=== PATIENT | male | born 1940 | race African-American/Black ===

== ENCOUNTER 2016-12-19 14:32 | Emergency (ER) | payer MEDICARE, BC ==
[~2016-12-19] VITALS: Wt 102.1 kg
[~2016-12-19 14:32] MED LIST: ASPIR-LOW81 MG PO; ASPIRIN325 MG PO; ASPIRIN81 M1 PO; FLEXERIL10 MG PO; GARLIC OIL PO; ISOSORBIDE MONO30 M1 PO; LIPITOR40 MG PO; LIPITOR80 MG PO; LOPRESSOR50 M1 PO; LOPRESSOR50 MG PO; MOTRIN IB200 M1 PO; MOTRIN800 MG PO; NITROSTAT0.4 MG SL; NKHM; PLAVIX75 MG PO; Peridex 473 ML473 ML PO; SIMVASTATIN40 MG PO; TYLENOL325 M1; VITAMIN D1000 IU PO
[2016-12-19 14:34] VITALS: BP 162/78
== END 2016-12-19 17:08 | disposition home or self-care (01) ==
LOC: ED 14:32
DX: R13.12 Dysphagia, oropharyngeal phase (principal); I25.10 Atherosclerotic heart disease of native coronary artery without angina pectoris; I25.2 Old myocardial infarction; E78.5 Hyperlipidemia, unspecified; I10 Essential (primary) hypertension; Z88.0 Allergy status to penicillin; Z79.82 Long term (current) use of aspirin; Z79.899 Other long term (current) drug therapy; Z87.891 Personal history of nicotine dependence

== ENCOUNTER 2017-05-06 09:11 | Inpatient (IN) | payer MEDICARE, BC ==
[~2017-05-06] VITALS: Ht 193 cm; Wt 106.6 kg
--- NOTE | ~2017-05-06 | EKG ---
[place], [place] ELECTROCARDIOGRAM REPORT NAME: JOSE A GRIFFITHS UNIT #: [id number] ROOM: 518 DOCTOR: ALBERTO DAVIS,BETY BIRTHDATE: [birth year] DOS: 05/06/2017 TIME: 0925 hours. IMPRESSION: 1. Sinus rhythm. 2. Left ventricular hypertrophy. 3. Nonspecific ST-T changes. 4. First degree atrioventricular block. BETY DOMINGUEZ MD CM:EKGRPT:ELECTROCARDIOGRAM REPORT 1100 [id number] BETY DOMINGUEZ MD
--- NOTE | ~2017-05-06 | EKG ---
[place], [place] ELECTROCARDIOGRAM REPORT NAME: JOSE A GRIFFITHS UNIT #: [id number] ROOM: 518 DOCTOR: ALBERTO DAVIS,BETY BIRTHDATE: [birth year] DOS: 05/06/2017 TIME: 0925 hours. IMPRESSION: 1. Sinus rhythm. 2. First degree atrioventricular block. 3. Probable left ventricular hypertrophy. 4. Normal QT interval. BETY DOMINGUEZ MD CM:EKGRPT:ELECTROCARDIOGRAM REPORT [id number] BETY DOMINGUEZ MD
--- NOTE | ~2017-05-06 | EKG ---
[place], [place] ELECTROCARDIOGRAM REPORT NAME: JOSE A GRIFFITHS UNIT #: [id number] ROOM: 518 DOCTOR: ALBERTO DAVIS,BETY BIRTHDATE: [birth year] DOS: 05/06/2017 TIME: 1554 hours. IMPRESSION: 1. Sinus rhythm. 2. Left axis deviation. 3. Ventricular ectopy. 4. Low voltage complexes in the precordial leads. BETY DOMINGUEZ MD CM:EKGRPT:ELECTROCARDIOGRAM REPORT [id number] BETY DOMINGUEZ MD
--- NOTE | ~2017-05-06 | EKG ---
[place], [place] ELECTROCARDIOGRAM REPORT NAME: JOSE A GRIFFITHS UNIT #: [id number] ROOM: 518 DOCTOR: BETY DOMINGUEZ MD BIRTHDATE: [birth year] DOS: 05/06/2017 TIME: 1219 hours. IMPRESSION: 1. Sinus rhythm. 2. Frequent ventricular ectopy. 3. Left ventricular hypertrophy. BETY DOMINGUEZ MD CM:EKGRPT:ELECTROCARDIOGRAM REPORT 1101 1125 BETY DOMINGUEZ MD
[2017-05-06 09:29] LABS: BASO % 0.4 % (0.0-1.0); EOS # 0.3 10*3/uL (0.0-0.4); EOS % 6.4 % (1.0-4.0); HEMATOCRIT 44.6 % (42.0-52.0); HEMOGLOBIN 14.9 g/dl (14.0-18.0); LYMPH # 1.8 10*3/uL (1.3-4.4); LYMPH % 39.6 % (27.0-41.0); MEAN CORPUSCULAR HGB 30.4 pg (27.0-31.0); MEAN CORPUSCULAR HGB CONC 33.4 g/dl (33.0-37.0); MEAN PLATELET VOLUME 11.1 fl (9.6-12.3); MONO # 0.7 10*3/uL (0.1-1.0); MONO % 14.8 % (3.0-9.0); NEUT # 1.8 10*3/uL (2.3-7.9); NEUT % 38.8 % (47.0-73.0); PLATELET COUNT AUTOMATED 203 10*3/uL (130-400); RED CELL DISTRI WIDTH 14.7 % (0-14.5); WHITE BLOOD COUNT 4.5 10*3/uL (4.8-10.8)
[2017-05-06 09:31] VITALS: BP 167/94
[2017-05-06 09:43] LABS: ACT PARTIAL THROMBO TIME 28.4 SECONDS (20.8-31.5); INTERNATIONAL NORM RATIO 1.2 (2.0-3.5)
[2017-05-06 09:50] LABS: ALBUMIN 3.4 gm/dl (3.1-4.5); ALKALINE PHOSPHATASE 97 U/L (45-117); BUN 15 mg/dl (7-24); CHLORIDE 104 mmol/L (98-107); CREATININE 0.95 mg/dL (0.70-1.30); POTASSIUM 3.5 mmol/L (3.5-5.1); SGOT/AST 26 IU/L (3-35); SGPT/ALT 26 U/L (12-78); SODIUM 139 mmol/L (136-145); TOTAL PROTEIN 8.5 gm/dL (6.4-8.2)
[2017-05-06 09:51] LABS: TROPONIN I 0.019 ng/ml (<0.045)
[2017-05-06 10:35] VITALS: BP 168/72
--- NOTE | 2017-05-06 10:35 | NUR ---
A 76, admitted to , under the services of GAYATRI Rutledge DO with a diagnosis of CHEST PAIN. Chief complaint is CHEST PAIN . Patient arrived via CART WITH RN from ER. Monitor applied. Initial assessment completed. Vital signs taken and recorded. GAYATRI RUTLEDGE DO notified of admission to the unit. Orders received. See assessment for past medical history, medications and allergies. Patient and/or family oriented to unit. [facility] visitation policy reviewed. Clothing/patient valuable form completed. [employer]
--- NOTE | 2017-05-06 11:00 | NUR ---
MEDS RECONCILED AT BEDSIDE WITH PT. PT EXCELLENT HISTORIAN.PT ALSO REFUSESD VACCINATIONS FOR FLU AND PNEUMOVAX. WILL READDRESS THIS AT D/C.
[2017-05-06 11:15] VITALS: BP 168/72
[2017-05-06 12:00] VITALS: BP 127/71
--- NOTE | 2017-05-06 15:11 | NUR ---
DILAUDID 1 MG GIVENM FOR C/O PAIN.01/22.
== END 2017-05-06 16:57 | disposition home or self-care (01) | DRG 392 ==
LOC: ED 09:11 → EDHOLD 09:44 → 5E 09:49
PROVIDERS: Emergency Medicine; ADMIT Emergency Medicine
DX: K21.9 Gastro-esophageal reflux disease without esophagitis (principal); E44.0 Moderate protein-calorie malnutrition; D70.9 Neutropenia, unspecified; D64.9 Anemia, unspecified; R07.89 Other chest pain; I10 Essential (primary) hypertension; Z96.642 Presence of left artificial hip joint; Z96.651 Presence of right artificial knee joint; R73.9 Hyperglycemia, unspecified; E66.3 Overweight; E78.5 Hyperlipidemia, unspecified; I25.10 Atherosclerotic heart disease of native coronary artery without angina pectoris; Z95.818 Presence of other cardiac implants and grafts; Z88.0 Allergy status to penicillin; Z79.82 Long term (current) use of aspirin; Z79.899 Other long term (current) drug therapy; Z87.891 Personal history of nicotine dependence; Z72.89 Other problems related to lifestyle; Z83.3 Family history of diabetes mellitus; Z90.49 Acquired absence of other specified parts of digestive tract; I25.2 Old myocardial infarction; Z82.49 Family history of ischemic heart disease and other diseases of the circulatory system; Z82.3 Family history of stroke; Z83.6 Family history of other diseases of the respiratory system; Z68.28 Body mass index [BMI] 28.0-28.9, adult

== ENCOUNTER 2017-12-18 07:41 | Emergency (ER) | payer MEDICARE, BC ==
[~2017-12-18] VITALS: Ht 193 cm; Wt 102.1 kg
[2017-12-18 07:45] VITALS: BP 177/92
== END 2017-12-18 08:08 | disposition home or self-care (01) ==
LOC: ED 07:41
DX: T18.0XXA Foreign body in mouth, initial encounter (principal); I25.10 Atherosclerotic heart disease of native coronary artery without angina pectoris; I25.2 Old myocardial infarction; E78.5 Hyperlipidemia, unspecified; I10 Essential (primary) hypertension; E66.3 Overweight; Z90.49 Acquired absence of other specified parts of digestive tract; Z88.0 Allergy status to penicillin; Z79.899 Other long term (current) drug therapy; Z79.82 Long term (current) use of aspirin; Z98.890 Other specified postprocedural states; Z87.891 Personal history of nicotine dependence; X58.XXXA Exposure to other specified factors, initial encounter; Y93.89 Activity, other specified; Y92.89 Other specified places as the place of occurrence of the external cause; Y99.8 Other external cause status